=== PATIENT | female | born 1995 | race Caucasian/White ===

== ENCOUNTER 2020-09-15 17:11 | Emergency (ER) | payer SELFPAY ==
--- OUTSIDE RECORDS SUMMARY | 2020-09-15 17:14 | XMS REPORT | Continuity of Care Document ---
:1995 Author Organization [facility] t Address [address] [place] [address] Care Team Providers Name Role Phone Singer YOUSSEF Attending Clinician Doctor Unassigned, Name Attending Clinician Unavailable Jasbir COOPER Attending Clinician Problems This patient has no known problems. Allergies, Adverse Reactions, Alerts This patient has no known allergies or adverse reactions. Medications This patient has no known medications. Procedures This patient has no known procedures. Encounters Start End Encounter Admission Attending Care Care Encounter Source Date/Time Date/Time Type Type Clinicians Facility Department ID 2020-01-04 2020-01-[address] [facility] [facility] [id number] 07:50:43 10:04:00 Rocco Phan [id number] [place] [id number] [place] [id number] 2020-01-04 2020-01-04 Orders Doctor DAMIÁN [id number] 00:00:00 00:00:00 Only UnassWILL reed [id number] [place] [facility] [id number] 2019-11-03 2019-11-03 Emergency Jasbir [facility] [id number] 12:58:32 16:59:00 Rikki Phan [id number] [place] [id number] [place] [id number] 2019-11-03 2019-11-03 Orders Doctor DAMIÁN [id number] 00:00:00 00:00:00 Only Unassigned, WILL [id number] [place] [facility] [id number] Results This patient has no known results.
[2020-09-15] MEDS ORDERED: HYDROCODONE/APAP 7.5/325 MG TAB ONE (18:03)
--- NOTE | 2020-09-15 18:40 | RAD REPORT ---
EXAM DESCRIPTION: RAD - Humerus Right - 09/15/2020 6:23 pm CLINICAL HISTORY: PAIN COMPARISON: <Comparisons> FINDINGS: No fracture or dislocation seen.
--- NOTE | 2020-09-15 19:07 | ER ---
Nurse's Notes [facility] Name: Luisa Agudelo Age: 25 yrs Sex: Female : 1995 Arrival Date: 09/15/2020 Time: 17:17 Bed 23 Private MD: Diagnosis: Pain in right shoulder;Fall on same level from slipping, tripping and stumbling Presentation: 09/15 17:40 Chief complaint: Patient states: R shoulder pain that began last night, worse this ss morning after a fall from standing. Coronavirus screen: Client indicates they have traveled out of the [place] in the last 14 days. Ebola Screen: Patient denies exposure to infectious person. Patient denies travel to an Ebola-affected area in the 21 days before illness onset. Initial Sepsis Screen: Does the patient meet any 2 criteria? No. Patient's initial sepsis screen is negative. Does the patient have a suspected source of infection? No. Patient's initial sepsis screen is negative. Risk Assessment: Do you want to hurt yourself or someone else? Patient reports no desire to harm self or others. Onset of symptoms was August 14, 2020. 17:40 Method Of Arrival: Ambulatory ss 17:40 Acuity: JARED 4 ss Historical: - Allergies: 17:43 No Known Allergies; ss - Home Meds: 17:43 phentermine oral oral [Active]; ss - PSHx: 17:43 None; ss - Immunization history:: Adult Immunizations up to date. - Social history:: Smoking status: Patient denies any tobacco usage or history of. Screenin:42 Abuse screen: Denies threats or abuse. Nutritional screening: No deficits noted. bb Tuberculosis screening: No symptoms or risk factors identified. Fall Risk None identified. Assessment: 19:42 General: Appears in no apparent distress. uncomfortable, Behavior is calm, cooperative. bb Pain: Complains of pain in right arm. Neuro: Level of Consciousness is awake, alert, obeys commands, Oriented to person, place, time, situation. Cardiovascular: No deficits noted. Respiratory: Respiratory effort is even, unlabored, Respiratory pattern is regular. GI: No signs and/or symptoms were reported involving the gastrointestinal system. Derm: Skin is pink, warm \T\ dry. Musculoskeletal: Capillary refill < 3 seconds, Reports pain in right arm. 19:43 Reassessment: Patient is alert, oriented x 3, equal unlabored respirations, skin bb warm/dry/pink. pt with sling in place verbalized understanding of and agrees to plan of care discharge instructions given pt ambulated with steady gait to exit. Vital Signs: 17:40 BP 131 / 97; Pulse 102; Resp 16; Temp 97.8(TE); Pulse Ox 98% on R/A; Weight 94.8 kg; ss Height 5 ft. 7 in. (170.18 cm); Pain 3/10; 19:44 BP 129 / 96; Pulse 79; Resp 16 S; Temp 98.5(O); Pulse Ox 96% on R/A; Pain 7/10; bb 17:40 Body Mass Index 32.73 (94.80 kg, 170.18 cm) ss ED Course: 17:17 Patient arrived in ED. mr 17:40 Sharyn George FNP-C [facility] kb 17:41 Bandar Sands MD is Attending Physician. kb 17:43 Triage completed. ss 17:43 Arm band placed on right wrist. ss 18:23 Humerus Right XRAY In Process Unspecified. EDMS 19:42 Patient has correct armband on for positive identification. bb 19:42 No provider procedures requiring assistance completed. Patient did not have IV access bb during this emergency room visit. Administered Medications: 17:47 Drug: [place] (HYDROcodone-acetaminophen) (7.5 mg-325 mg) 1 tabs Route: PO; ss 19:26 Follow up: Response: No adverse reaction; Pain is decreased; RASS: Alert and Calm (0) bb Outcome: 19:06 Discharge ordered by . kb 19:45 Discharged to home ambulatory, with family. bb 19:45 Condition: stable 19:45 Discharge instructions given to patient, Instructed on discharge instructions, follow up and referral plans. Demonstrated understanding of instructions, follow-up care, medications, Prescriptions given X 1. 19:45 Patient left the ED. bb Signatures: Dispatcher [employer] EDMS Sharyn George FNP-C FNP-Ckb Rivera, Mary mr LylesLaura, RN RN bb Kalie Bills RN RN ss
--- NOTE | 2020-09-15 19:07 | EDPHYS ---
Physician Documentation [facility] Name: Luisa Agudelo Age: 25 yrs Sex: Female : 1995 Arrival Date: 09/15/2020 Time: 17:17 Bed 23 Private MD: ED Physician Bandar Sands HPI: 09/15 20:04 This 25 yrs old Female presents to ER via Ambulatory with complaints of Fall kb Injury, Arm Pain. 20:04 Details of fall: The patient fell from an upright position, while standing. Onset: The kb symptoms/episode began/occurred today. Associated injuries: The patient sustained anterior aspect of right shoulder, decreased range of motion, painful injury. Severity of symptoms: At their worst the symptoms were mild, moderate, in the emergency department the symptoms are unchanged. The patient has not experienced similar symptoms in the past. The patient has not recently seen a physician. Pt reports she slipped in the shower and fell, hitting right shoulder. Historical: - Allergies: 17:43 No Known Allergies; ss - Home Meds: 17:43 phentermine oral oral [Active]; ss - PSHx: 17:43 None; ss - Immunization history:: Adult Immunizations up to date. - Social history:: Smoking status: Patient denies any tobacco usage or history of. ROS: 20:02 Constitutional: Negative for fever, chills, and weight loss, Respiratory: Negative for kb shortness of breath, cough, wheezing, and pleuritic chest pain, Skin: Negative for injury, rash, and discoloration, Neuro: Negative for headache, weakness, numbness, tingling, and seizure. 20:02 MS/extremity: Positive for decreased range of motion, pain, tenderness, of the anterior aspect of right shoulder. Exam: 20:02 Constitutional: This is a well developed, well nourished patient who is awake, alert, kb and in no acute distress. Head/Face: Normocephalic, atraumatic. Respiratory: Respirations even and unlabored. No increased work of breathing, no retractions or nasal flaring. Skin: Warm, dry with normal turgor. Normal color. Neuro: Awake and alert, GCS 15, oriented to person, place, time, and situation. Moves all extremities. Normal gait. 20:02 Musculoskeletal/extremity: Extremities: grossly normal except: noted in the anterior aspect of right shoulder: decreased ROM, pain, tenderness, ROM: limited active range of motion, in the anterior aspect of right shoulder, Circulation is intact in all extremities. Sensation intact. Vital Signs: 17:40 BP 131 / 97; Pulse 102; Resp 16; Temp 97.8(TE); Pulse Ox 98% on R/A; Weight 94.8 kg; ss Height 5 ft. 7 in. (170.18 cm); Pain 3/10; 19:44 BP 129 / 96; Pulse 79; Resp 16 S; Temp 98.5(O); Pulse Ox 96% on R/A; Pain 7/10; bb 17:40 Body Mass Index 32.73 (94.80 kg, 170.18 cm) ss MDM: 17:41 Patient medically screened. kb 20:01 Data reviewed: vital signs, nurses notes. Data interpreted: Pulse oximetry: on room air kb is 96 %. Interpretation: normal. Counseling: I had a detailed discussion with the patient and/or guardian regarding: the historical points, exam findings, and any diagnostic results supporting the discharge/admit diagnosis, radiology results, the need for outpatient follow up, a orthopedic surgeon, to return to the emergency department if symptoms worsen or persist or if there are any questions or concerns that arise at home. 04 17:44 Order name: Humerus Right XRAY; Complete Time: 18:41 kb 04 18:44 Order name: Sling; Complete Time: 19:26 kb Administered Medications: 17:47 Drug: [place] (HYDROcodone-acetaminophen) (7.5 mg-325 mg) 1 tabs Route: PO; ss 19:26 Follow up: Response: No adverse reaction; Pain is decreased; RASS: Alert and Calm (0) bb Disposition: 09/16 07:33 Co-signature as Attending Physician, Bandar Sands MD I agree with the assessment and heriberto plan of care. Disposition: 09/15/20 19:06 Discharged to Home. Impression: Pain in right shoulder, Fall on same level from slipping, tripping and stumbling. - Condition is Stable. - Discharge Instructions: Shoulder Pain, [id number]. - Prescriptions for Diclofenac Sodium 75 mg Oral Tablet, Delayed Release (E.C.) - take 1 tablet by ORAL route 2 times per day As needed; 30 tablet. - Medication Reconciliation Form, Thank You Letter, Antibiotic Education, Prescription Opioid Use form. - Follow up: Emergency Department; When: As needed; Reason: Worsening of condition. Follow up: Private Physician; When: 2 - 3 days; Reason: Recheck today's complaints, Continuance of care, Re-evaluation by your physician. Signatures: Dispatcher [employer] EDMS Sharyn George, FLOOR SPECIALIST-C FLOOR SPECIALIST-Ckb Bandar Sands MD MD cha Ballard, Brenda RN RN Kalie Crabtree RN RN ss Corrections: (The following items were deleted from the chart) 09/15 19:45 19:06 09/15/2020 19:06 Discharged to Home. Impression: Pain in right shoulder; Fall on bb same level from slipping, tripping and stumbling. Condition is Stable. Forms are Medication Reconciliation Form, Thank You Letter, Antibiotic Education, Prescription Opioid Use. Follow up: Emergency Department; When: As needed; Reason: Worsening of condition. Follow up: Private Physician; When: 2 - 3 days; Reason: Recheck today's complaints, Continuance of care, Re-evaluation by your physician. kb
[2020-09-15 20:21] VITALS: BP 129/96; TEMP 98.5; O2SAT 96
== END 2020-09-15 19:45 | disposition home or self-care (01) ==
LOC: ER 17:11
DX: M25.511 Pain in right shoulder (principal); W01.0XXA Fall on same level from slipping, tripping and stumbling without subsequent striking against object, initial encounter; Y93.E1 Activity, personal bathing and showering; Y92.9 Unspecified place or not applicable
CPT/HCPCS: 99283

== ENCOUNTER 2021-02-22 16:19 | Emergency (ER) | payer SELFPAY ==
--- NOTE | 2021-02-22 17:15 | RAD REPORT ---
EXAM DESCRIPTION: RAD - Elbow Left 2 View - 02/22/2021 5:05 pm CLINICAL HISTORY: rule out fb COMPARISON: No comparisons FINDINGS: No acute fracture. No malalignment. No significant focal degenerative changes. Laceration to the elbow. No radiopaque foreign body . IMPRESSION: No acute osseous abnormality involving the left elbow.
[2021-02-22] MEDS ORDERED: HYDROCODONE/APAP 10/325 TAB ONE (17:16)
--- NOTE | 2021-02-22 17:23 | ER ---
Nurse's Notes [facility] Name: Luisa Agudelo Age: 25 yrs Sex: Female : 1995 Arrival Date: 02/22/2021 Time: 16:22 Bed 12 Private MD: Diagnosis: Dog Bite Presentation: 02/22 16:27 Chief complaint: Patient states: Family pet, [place] garcia and Husky mix, bit pt vg1 on Left elbow and Right forearm. Incident happened about an hour ago in the [facility]. Dog last set of vaccines was in September 2019. Pt states Left elbow and Right forearm '[place]'. Coronavirus screen: Vaccine status: Patient reports being unvaccinated. Ebola Screen: Patient negative for fever greater than or equal to 101.5 degrees Fahrenheit, and additional compatible Ebola Virus Disease symptoms. Initial Sepsis Screen: Does the patient meet any 2 criteria? No. Patient's initial sepsis screen is negative. Does the patient have a suspected source of infection? No. Patient's initial sepsis screen is negative. Risk Assessment: Do you want to hurt yourself or someone else? Patient reports no desire to harm self or others. Onset of symptoms was February 22, 2021. 16:27 Method Of Arrival: Ambulatory vg1 16:27 Acuity: JARED 3 vg1 Triage Assessment: 16:30 Bite description: bite sustained to Left Elbow and Right forearm by a dog, animal vg1 information: vaccination(s) is not up to date. General: Appears in no apparent distress. uncomfortable, Behavior is cooperative, crying. Pain: Complains of pain in left elbow and right forearm. 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 - Social history:: Smoking status: Patient reports the use of cigarette tobacco products, smokes one-half pack cigarettes per day. Assessment: 16:43 Reassessment: [place] PD notified. Vital Signs: 16:27 BP 141 / 101; Pulse 125; Resp 20; Temp 98.6; Pulse Ox 100% ; Weight 90.26 kg; Height 5 vg1 ft. 7 in. (170.18 cm); Pain 10/10; 16:27 Body Mass Index 31.17 (90.26 kg, 170.18 cm) vg1 ED Course: 16:22 Patient arrived in ED. mr 16:30 Triage completed. vg1 16:30 Arm band placed on. vg1 16:41 Jayy Camara PA is PHCP. [facility] 16:42 Franklin Slaughter MD is Attending Physician. m 17:05 Elbow Left 2 View XRAY In Process Unspecified. EDMS 17:46 No provider procedures requiring assistance completed. Patient did not have IV access ss during this emergency room visit. Administered Medications: 16:55 Not Given (Patient Refused): [place] (HYDROcodone-acetaminophen) 10 mg-325 mg 1 tabs PO ss once; RASS on ADMIN: Combtv4, Very Agttd3, Agttd2, Rstlss1, AlertClm0, Drwsy-1, Lt Sdtn-2, Mod Sdtn-3, Dp Sdtn-4, UnArsble-5 17:25 Drug: Augmentin (Amoxicillin-Clavulanate) 875 mg Route: PO; ss 17:46 Follow up: Response: Medication administered at discharge. ss 17:25 Drug: Tylenol #3 (300 mg-30 mg) 2 tabs Route: PO; ss 17:46 Follow up: Response: Medication administered at discharge. Outcome: 17:22 Discharge ordered by . [facility] 17:46 Discharged to home ambulatory. 17:46 Condition: good 17:46 Discharge instructions given to patient, family, Instructed on discharge instructions, follow up and referral plans. Demonstrated understanding of instructions, follow-up care. 17:48 Prescriptions given X 2. ss 17:48 Patient left the ED. ss Signatures: Dispatcher [employer] EDMS Jayy Camara PA PA jmm Rivera, Mary Kalie Bills, RN RN Katheryn Khan, RN RN vg1
--- NOTE | 2021-02-22 17:23 | EDPHYS ---
Physician Documentation [facility] Name: Luisa Agudelo Age: 25 yrs Sex: Female : 1995 Arrival Date: 02/22/2021 Time: 16:22 Bed 12 Private MD: ED Physician Franklin Slaughter HPI: 02/22 16:45 This 25 yrs old Female presents to ER via Ambulatory with complaints of Dog jmm Bite. 16:45 Onset: The symptoms/episode began/occurred acutely, just prior to arrival. Animal jmm information: Animal's vaccinations are up to date. Secondary to the bite the patient reports Puncture. Associated signs and symptoms: Pertinent positives: pain at site, Pertinent negatives: loss of consciousness, motor deficit, numbness distal to wound, suspected foreign body. This is a 25-year-old female with no Neida conditions presents emerged part with complaints of left arm pain following a dog bite which occurred just prior to arrival. Patient complains of a burning sensation which radiates up the left humeral region. Denies any weakness.. 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 - Social history:: Smoking status: Patient reports the use of cigarette tobacco products, smokes one-half pack cigarettes per day. ROS: 16:45 Constitutional: Negative for fever, chills, and weight loss, Cardiovascular: Negative jmm for chest pain, palpitations, and edema, Respiratory: Negative for shortness of breath, cough, wheezing, and pleuritic chest pain. 16:45 MS/extremity: Positive for pain. 16:45 Skin: Positive for laceration(s). 16:45 Neuro: 16:45 All other systems are negative. Exam: 16:45 Head/Face: atraumatic. Eyes: EOMI, no conjunctival erythema appreciated ENT: Moist jmm Mucus Membranes Neck: Trachea midline, Supple Chest/axilla: Normal chest wall appearance and motion. Cardiovascular: Regular rate and rhythm. No edema appreciated Respiratory: Normal respirations, no respiratory distress appreciated Abdomen/GI: Non distended, soft Back: Normal ROM 16:45 Constitutional: The patient appears alert, awake, anxious. 16:45 Skin: Multiple punctures noted to the left arm, no surrounding erythema or purulent drainage appreciated at the wound sites.. 16:45 Neuro: Orientation: is normal, Mentation: is normal, Memory: is normal. 16:45 Psych: Behavior/mood is pleasant, cooperative. Vital Signs: 16:27 BP 141 / 101; Pulse 125; Resp 20; Temp 98.6; Pulse Ox 100% ; Weight 90.26 kg; Height 5 vg1 ft. 7 in. (170.18 cm); Pain 10/10; 16:27 Body Mass Index 31.17 (90.26 kg, 170.18 cm) vg1 MDM: 16:45 Patient medically screened. [facility] 02/23 06:05 Data reviewed: vital signs, nurses notes. Counseling: I had a detailed discussion with [facility] the patient and/or guardian regarding: the historical points, exam findings, and any diagnostic results supporting the discharge/admit diagnosis, radiology results, the need for outpatient follow up, to return to the emergency department if symptoms worsen or persist or if there are any questions or concerns that arise at home. 02/22 16:51 Order name: Elbow Left 2 View XRAY; Complete Time: 17:18 [facility] 02/22 16:54 Order name: Wound Care; Complete Time: 17:25 [facility] Administered Medications: 02/22 16:55 Not Given (Patient Refused): [place] (HYDROcodone-acetaminophen) 10 mg-325 mg 1 tabs PO ss once; RASS on ADMIN: Combtv4, Very Agttd3, Agttd2, Rstlss1, AlertClm0, Drwsy-1, Lt Sdtn-2, Mod Sdtn-3, Dp Sdtn-4, UnArsble-5 17:25 Drug: Augmentin (Amoxicillin-Clavulanate) 875 mg Route: PO; ss 17:46 Follow up: Response: Medication administered at discharge. 17:25 Drug: Tylenol #3 (300 mg-30 mg) 2 tabs Route: PO; ss 17:46 Follow up: Response: Medication administered at discharge. Disposition: 02/23 09:04 Co-signature as Attending Physician, Franklin Slaughter MD I agree with the assessment and kdr plan of care. Disposition Summary: 02/22/21 17:22 Discharge Ordered Location: Home [facility] Condition: Stable jm Diagnosis - Dog Bite jmm Followup: jmm - With: Private Physician - When: 2 - 3 days - Reason: Recheck today's complaints, Continuance of care, Re-evaluation by your physician Discharge Instructions: - Discharge Summary Sheet jmm - Animal Bite, Adult [facility] Forms: - Medication Reconciliation Form [facility] - Thank You Letter [facility] - Antibiotic Education [facility] - Prescription Opioid Use [facility] Prescriptions: - Augmentin 875-125 mg Oral Tablet - take 1 tablet by ORAL route every 12 hours for 10 days; 20 tablet; Refills: 0, [facility] Product Selection Permitted - Tylenol-Codeine #3 300 mg-30 mg Oral - take 1 tablet by ORAL route every 4-6 hours; 20 tablet; Refills: 0, Product [facility] Selection Permitted Signatures: Dispatcher [employer] EDMS Franklin Slaughter MD MD kdr Mickail, Joel, PA PA [facility] Kalie Bills RN RN ss Garcia, Victoria, RN RN vg1
[2021-02-22] MEDS ORDERED: CODEINE 30MG/APAP 300MG TAB ONE (17:48)
[2021-02-22] MEDS ORDERED: AMOX/K CLAV 875 MG TAB ONE (17:48)
[2021-02-22 18:04] VITALS: BP 141/101; TEMP 98.6; O2SAT 100
== END 2021-02-22 17:48 | disposition home or self-care (01) ==
LOC: ER 16:19
DX: S41.132A Puncture wound without foreign body of left upper arm, initial encounter (principal); W54.0XXA Bitten by dog, initial encounter; F17.210 Nicotine dependence, cigarettes, uncomplicated
CPT/HCPCS: 99283